=== PATIENT | female | born 1975 | race Caucasian/White ===

== ENCOUNTER 2020-04-27 15:38 | Emergency (ER) | payer OTHER ==
[2020-04-27 21:56] LABS: BASOPHIL 0.4 % (0-2); EOSINOPHIL 0.6 % (0-5); HCT 38.2 % (37.0-47.0); HGB 12.8 g/dl (12.5-16.0); LYMPHOCYTE 8.3 % (15-48); MCH 32.7 pg (25.0-31.0); MCHC 33.5 g/dL (32.0-36.0); MCV 97.4 fL (78.0-100.0); MPV 9.9 fL (6.0-9.5); NEUTROPHIL 83.2 % (41-80); NRBC 0; PLT 249 K/uL (150-400); RBC 3.92 M/uL (4.20-5.40); RDW 11.9 % (11.5-14.0); WBC 14.6 K/uL (4.0-10.5)
[2020-04-27 22:11] LABS: INR 1.05 (0.9-1.2); PTT 33.7 SECONDS (22.2-34.7)
[2020-04-27 22:13] LABS: D-DIMER 0.33 ug/mLFEU (0.00-0.41)
[2020-04-27 22:24] LABS: ALBUMIN 3.6 g/dL (3.4-5.0); BILIRUBIN - TOTAL 0.5 mg/dL (0.2-1.0); BUN/CREAT RATIO (CALC) 21.7 RATIO; CREATININE 0.6 mg/dL (0.51-0.95); GLOBULIN (CALCULATION) 3.9 g/dL; POTASSIUM 3.7 mmol/L (3.5-5.1); TOTAL PROTEIN 7.5 g/dL (6.4-8.2)
== END 2020-04-27 23:19 | disposition home or self-care (01) ==
LOC: FER 15:38
PROVIDERS: Emergency Medicine
DX: R07.89 Other chest pain (principal); R06.02 Shortness of breath; R05 Cough; J45.909 Unspecified asthma, uncomplicated; Z20.822 Contact with and (suspected) exposure to COVID-19
CPT/HCPCS: 36415; 80053; 82728; 84484; 85025; 85379; 85610; 85730; 86140; 93005; J1885; J2405; U0002